=== PATIENT | female | born 1975 | race Hispanic/Latino ===

== ENCOUNTER 2018-11-10 10:26 | Emergency (ER) | payer OTHER, SELFPAY ==
--- NOTE | 2018-11-10 11:11 | PC.NURSE ---
pt has been called twice. 1050 and 1110 no answer.
== END 2018-11-10 11:10 | disposition left against medical advice (07) ==
PROVIDERS: Emergency Provider Emergency Medicine; PCP Family Medicine
DX: M79.606 Pain in leg, unspecified (principal)
CPT/HCPCS: 99281